=== PATIENT | male | born 1970 | race African-American/Black ===

== ENCOUNTER 2018-03-21 17:30 | Emergency (ER) | payer OTHER ==
[~2018-03-21] VITALS: Ht 180.3 cm; Wt 99.0 kg
[~2018-03-21 17:30] MED LIST: ALBU8.5H8 INH; AMLO10TA2 PO; ASPI325T17 PO; ATOR10TA PO; BUDE10.2 INH; DULO30CA2 PO; FLUO20CA19 PO; FLUT1DIS IH; ISOS5TAB2 PO; PRED50TA PO; QUET50TA8 PO; RABE20TA18 PO; SUCR1TAB33 PO; TIOT18CA INH
[2018-03-21 18:25] LABS: BASOPHILS # (AUTO) 0.05 x10^3/uL (0-0.1); BASOPHILS % (AUTO) 1 % (0-1); EOSINOPHILS # (AUTO) 0.79 x10^3/uL (0-0.4); EOSINOPHILS % (AUTO) 11 % (1-7); LYMPHOCYTES # (AUTO) 2.56 x10^3/uL (1-3.4); LYMPHOCYTES % (AUTO) 36 % (22-44); MD NO; MEAN CORPUSCULAR HEMOGLOBIN 30.4 pg (27.5-34.5); MEAN CORPUSCULAR HGB CONC 33.7 g/dL (33.2-36.2); MEAN PLATELET VOLUME 7.7 fL (7.4-10.4); MONOCYTES # (AUTO) 0.59 x10^3/uL (0.2-0.8); MONOCYTES % (AUTO) 8 % (2-9); NEUTROPHILS # (AUTO) 3.14 x10^3/uL (1.8-6.8); NEUTROPHILS % (AUTO) 44 % (42-75); PLATELET COUNT 262 x10^3/uL (130-400); RED CELL DISTRIBUTION WIDTH 14.5 % (9.4-14.8)
[2018-03-21 18:33] LABS: ALBUMIN 3.9 g/dL (3.4-5.0); ANION GAP 8 mmol/L (5-15); CALCIUM 8.3 mg/dL (8.5-10.1); CHLORIDE 107 mmol/L (98-107)
[2018-03-21 18:33] LABS: MICROSCOPIC NOT IND
[2018-03-21 18:37] LABS: CULTURE INDICATED? NO
[2018-03-21 18:37] LABS: ALANINE AMINOTRANSFERASE 81 U/L (12-78); ALKALINE PHOSPHATASE 69 U/L (45-117); BILIRUBIN,TOTAL 0.5 mg/dL (0.2-1.0); CREATININE 1.22 mg/dL (0.7-1.3); TOTAL PROTEIN 7.3 g/dL (6.4-8.2)
[2018-03-21] MEDS ORDERED: IBUPROFEN 200 MG TABLET ONE (19:02)
[2018-03-21] MEDS ORDERED: IBUPROFEN 200 MG TABLET PO ONE (19:30)
[2018-03-21] MEDS ORDERED: IBUPROFEN 600 MG TABLET PO ONE (19:30)
[2018-03-21] MEDS ORDERED: OMNIPAQUE 350 MG/ML, 100ML BOTTLE ONE (20:12)
[2018-03-21 21:21] VITALS: BP 128/91
== END 2018-03-21 21:24 | disposition home or self-care (01) ==
LOC: ED 19:00
DX: S39.011A Strain of muscle, fascia and tendon of abdomen, initial encounter (principal); I10 Essential (primary) hypertension; J45.909 Unspecified asthma, uncomplicated; X58.XXXA Exposure to other specified factors, initial encounter; Y93.89 Activity, other specified; Y92.89 Other specified places as the place of occurrence of the external cause; Y99.8 Other external cause status
CPT/HCPCS: 36415; 74177; 80053; 81003; 85025; 99285; Q9967

== ENCOUNTER 2020-07-17 16:13 | Emergency (ER) | payer OTHER ==
[~2020-07-17] VITALS: Ht 180.3 cm; Wt 94.6 kg
[~2020-07-17 16:13] MED LIST changes: +AMLO-211 PO; -AMLO10TA2 PO; -QUET50TA8 PO; +QUET50TA9 PO
[2020-07-17] MEDS ORDERED: ASPIRIN 81 MG TABLET CHEW PO ONE (17:30)
[2020-07-17 17:49] LABS: BASOPHILS % (AUTO) 1 % (0-1); EOSINOPHILS % (AUTO) 8 % (1-7); LYMPHOCYTES % (AUTO) 23 % (22-44); MEAN CORPUSCULAR HEMOGLOBIN 30.8 pg (27.5-34.5); MEAN CORPUSCULAR HGB CONC 32.7 g/dL (33.2-36.2); MEAN PLATELET VOLUME 7.8 fL (7.4-10.4); MONOCYTES % (AUTO) 7 % (2-9); NEUTROPHILS % (AUTO) 61 % (42-75); PLATELET COUNT 265 x10^3/uL (130-400); RED BLOOD COUNT 4.92 x10^6/uL (4.38-5.82); RED CELL DISTRIBUTION WIDTH 13.8 % (9.4-14.8)
[2020-07-17 17:53] LABS: MD NO
[2020-07-17 18:01] LABS: ALANINE AMINOTRANSFERASE 89 U/L (12-78); ANION GAP 6 mmol/L (5-15); CALCIUM 8.6 mg/dL (8.5-10.1); CHLORIDE 104 mmol/L (98-107); CREATININE 1.26 mg/dL (0.7-1.3)
[2020-07-17 18:05] LABS: ALKALINE PHOSPHATASE 81 U/L (45-117); BILIRUBIN,TOTAL 0.7 mg/dL (0.2-1.0); TOTAL PROTEIN 7.9 g/dL (6.4-8.2); TROPONIN I < 0.015 ng/mL (0.000-0.045)
--- NOTE | 2020-07-17 18:32 | NUR ---
LABORATORY ASST: PT TO ROOM FROM LOBBY
--- NOTE | 2020-07-17 18:41 | NUR ---
PATIENT WALKED BACK FROM LOBBY WITH CHIEF C/O CHEST PAIN. PATIENT STATES HE STARTED EXPERIENCING STABBING CHEST PAIN ABOUT 3 PM TODAY. PATIENT REPORTS SOME SHORTNESS OF BREATH, AND NAUSEA. PATIENT ENDORSES HISTORY OF PRINTZMETAL ANGINA. NO SIGNS OF ACUTE DISTRESS, CONNECTED TO AIRSET CASTER, SR IN THE 70S
--- NOTE | 2020-07-17 18:45 | NUR ---
PATIENT STATES HE TOOK A NITROGLYCERIN TABLET AROUND 3:30 WITH NO RELIEF OF SYMPTOMS.
[2020-07-17] MEDS ORDERED: ASPIRIN 81 MG TABLET EC ONE (18:47)
[2020-07-17] MEDS ORDERED: ASPIRIN 81 MG TABLET CHEW ONE (18:47)
--- NOTE | 2020-07-17 18:51 | NUR ---
REPORT FROM [facility] ASSUMING CARE AT THIS TIME.
[2020-07-17] MEDS ORDERED: KETOROLAC 30 MG/1 ML IM ONE (19:00)
--- NOTE | 2020-07-17 19:06 | NUR ---
BEDSIDE REPORT GIVEN TO MARK AVILA FOR TRANSFER OF PATIENT CARE.
[2020-07-17] MEDS ORDERED: KETOROLAC 30 MG/1 ML ONE (19:13)
--- NOTE | 2020-07-17 20:29 | NUR ---
LAB AT BEDSIDE FOR REPEAT TROP AT THIS TIME
--- NOTE | 2020-07-17 20:34 | NUR ---
PT UP TO RESTROOM STEADY GAIT AT THIS TIME
[2020-07-17 20:50] LABS: TROPONIN I < 0.015 ng/mL (0.000-0.045)
[2020-07-17 21:18] VITALS: BP 132/78
--- NOTE | 2020-07-17 21:19 | NUR ---
Patient/Caregiver given discharge instructions and they have confirmed that they understand the instructions. Patient ambulatory with steady gait.
== END 2020-07-17 21:40 | disposition home or self-care (01) ==
LOC: ED 18:56
DX: R07.1 Chest pain on breathing (principal); R07.2 Precordial pain; R07.89 Other chest pain; R06.02 Shortness of breath; I10 Essential (primary) hypertension; J45.909 Unspecified asthma, uncomplicated
CPT/HCPCS: 36415; 71045; 80053; 83880; 84484; 85025; 85379; 93005; 96372; 99285; J1885